=== PATIENT | female | born 1965 | race Caucasian/White ===

== ENCOUNTER 2018-01-19 11:22 | Day surgery (SDC) | payer BC ==
[2018-01-12 09:31] VITALS: BMI 24.8
[~2018-01-19 11:22] MED LIST: DEXAMETHASONE SOD PHOSPHATE 10 MG/ML 1 ML VIAL IV ONE; HYDROmorphone 0.5 MG/0.5 ML SYRINGE IVP PRN; LACTATED RINGERS 1,000 ML IV SCH; MIDAZOLAM 2 MG/2 ML VIAL IV PRN; MORPHINE SULFATE 4 MG/ML SYRINGE IV PRN; ONDANSETRON 4 MG/2 ML VIAL IVP ONE; Pre Op ABX Message 1 EACH MISC MISCELLANE ONE
[2018-01-19] MEDS ORDERED: LIDOCAINE 1% 20 ML VIAL (10MG/ML) FOR IV START INTRADERMA ONE (12:12)
[2018-01-19 12:15] VITALS: TEMP 97.7
[2018-01-19] MEDS ORDERED: ONDANSETRON 4 MG/2 ML VIAL ONE (12:20)
[2018-01-19] MEDS ORDERED: PROPOFOL 10 MG/ML 20 ML VIAL IV ONE (14:39)
[2018-01-19] MEDS ORDERED: ceFAZolin 1,000 MG/50 ML BAG (PMX) IVPB ONE (14:39)
[2018-01-19] MEDS ORDERED: MIDAZOLAM 2 MG/2 ML VIAL ONE (14:39)
[2018-01-19] MEDS ORDERED: LIDOCAINE 1% INJ 10MG/ML (20 ML MDV) ONE (14:39)
[2018-01-19] MEDS ORDERED: fentaNYL (PF) 50 MCG/ML 2 ML AMP ONE (14:39)
[2018-01-19] MEDS ORDERED: diphenhydrAMINE 50 MG/ML 1 ML VIAL ONE (14:39)
[2018-01-19] MEDS ORDERED: BUPIVACAINE (PF) 0.25% 30 ML VIAL SQ ONE (14:40)
[2018-01-19] MEDS ORDERED: LACTATED RINGERS 1,000 ML IV ONE (15:37)
--- NOTE | 2018-01-19 16:25 | P.OP ---
Date of Procedure: 01/19/18 Preoperative Diagnosis: Hallux abductovalgus deformity right foot and plantar fasciitis right foot Postoperative Diagnosis: Same Procedure(s) Performed: 1. Mariano William bunionectomy with pin and wire fixation right foot 2. Endoscopic plantar fasciotomy procedure right foot Anesthesia: MAC Surgeon: Calin Rivas Operative Findings: Unremarkable Description of Procedure: On the date of surgery the patient was taken to the operating room in good condition placed on the operating table in a supine position where an IV was started and adequate IV anesthetic agents were utilized anesthesia was then further supplemented with approximately 20 mL of 0.25% plain Marcaine given in a Reddy block to the first ray complex of the patient's right foot and an infiltrative block to the patient's right heel. The patient's right foot then prepped and draped in the usual aseptic manner and over heavy web roll padding an ankle tourniquet was placed above the malleoli of the patient's right ankle patient's right foot and ankle were then elevated and exsanguinated of blood and after approximately 2 minutes. A time the ankle tourniquet to the patient's right ankle was inflated to approximately 275 mmHg Time attention was directed to the plantar medial side of the patient's right heel where an approximately 1 cm linear incision was made was made in line with the medial band of the plantar fascia and was placed close to the origin of the plantar fascia it was deepened via sharp dissection down through the subcutaneous tissues. A fascial elevator was then passed along the inferior surface of the fascia, creating a channel for the obturator and cannula complex this was then inserted and a lateral exit portal incision was made. The endoscope was introduced and the medial side and L blade from the lateral side and the medial band of the plantar fascia was completely severed upon completion of this fascial probe was used to ensure that all fibers had been severed and when this was seen to be true the surgical site was flushed with copious amounts of sterile saline solution cannula was removed the skin edges were then coaptated and maintained utilizing 4-0 nylon simple interrupted suture. At this point in time attention was directed to the dorsal aspect of the first metatarsal phalangeal joint where an approximately 6-1/2 cm dorsal linear incision was made. The incision was deepened via sharp dissection down through the level of the subcutaneous tissue layers all neurovascular structures encountered were identified isolated and were retracted and any bleeding vessels were clamped electrocauterized dissection was then carried deep down to level OF parosteal structures overlying the first metatarsal phalangeal joint these were incised utilizing an inverted L incision and underscored and retracted from the underlying bone hyperostosis present on the medial side of the first metatarsal head was then resected flush in line with the shaft of the first metatarsal and removed in total site. He oscillating bone saw was then used to create an osteotomy ends first and manner level of the metaphysis this was a 60 osteotomy with the Camp being directed distally upon completion of this through and through medial to lateral osteotomy the capital fragment was displaced laterally proximately 1/2 cm and with a 0.062 K wire. At this point in time attention was directed to the distal aspect of the incision where dissection was carried deep down to level of the middle phalanx Periosteal Structures Were Incised in Line with the Original Skin Incision and Underscored and Retracted from the Underlying Bone Dorsal to Plantar Wedge Osteotomy Was Then Performed and a Manner That the Camp of the Wedge Was Directed Laterally Though Care Was Taken Not to Disrupt the Lateral Cortex the Base of the Wedge Was Directed Medially the Encompass Wedge of Bone Was Removed in Total from the Surgical Site Area to Surgical Drill Holes Were Then Fashioned on Either Side of the Osteotomy at the Dorsal Medial Aspect of the Proximal Interphalangeal Joint They Were Fashioned in Such a Manner That They Met with Then Using Double Strength 28-gauge Monofilament Stainless Steel Wire the Osteotomy Was Fixated and Anatomically Closed in Opposed Position upon Completion of This the Hallux Was Seen to Maintain a More Rectus Position at This Point in Time Attention Was Directed to the Dural Side of the First Metatarsal Phalangeal Joint Where a Lateral Capsulotomy Was Performed and the Abductor Hallucis Tendon Was Severed. He done didn't capsule on the medial side of the joint was then remodeled removed or graft structures then coaptated and maintained utilizing 2-0 Vicryl simple interrupted suture subcutaneous tissue layers were then coaptated and maintained utilizing 3-0 Vicryl simple interrupted suture and the skin was closed utilizing 4-0 nylon simple interrupted suture sites were then covered with Adaptic Kerlix fluffs four-inch conformer and 4 inch Coban to the patient' s right ankle was then deflated and adequate hemostatic return was seen in all digits the patient's right foot The patient tolerated the surgery and anesthesia well was taken recovery room in good postoperative condition
[2018-01-19 16:33] VITALS: RESP 16
[2018-01-19] MEDS ORDERED: HYDROcodone/APAP 5-325MG 1 EACH TAB PO ONE (17:03)
[2018-01-19] MEDS ORDERED: KETOROLAC 30 MG/ML 1 ML VIAL IVP ONE (17:11)
[2018-01-19 17:19] VITALS: PULSE 68
[2018-01-19 17:55] VITALS: BP 129/70
== END 2018-01-19 17:55 | disposition home or self-care (01) ==
LOC: OR 11:22
PROVIDERS: ATTEND Podiatrist Foot & Ankle Surgery
DX: M20.11 Hallux valgus (acquired), right foot (principal); M72.2 Plantar fascial fibromatosis; F41.9 Anxiety disorder, unspecified; J45.909 Unspecified asthma, uncomplicated; K21.9 Gastro-esophageal reflux disease without esophagitis; Z88.1 Allergy status to other antibiotic agents; Z88.0 Allergy status to penicillin; Z79.51 Long term (current) use of inhaled steroids; Z79.899 Other long term (current) drug therapy; Z79.2 Long term (current) use of antibiotics; Z98.51 Tubal ligation status

== ENCOUNTER 2020-11-13 15:14 | Emergency (ER) | payer BC ==
[2020-11-13 15:24] VITALS: BP 160/90; PULSE 108; RESP 16; TEMP 98.1
--- NOTE | 2020-11-13 15:30 | ED ---
Head Injury HPI - General Chief complaint: Head Injury Stated complaint: fall, head/back injury Time Seen by Provider: 11/13/20 15:25 Source: patient Mode of arrival: ambulatory Limitations: no limitations - History of Present Illness Initial comments: 55-year-old female presents to the emergency department with chief complaint of a head injury. Patient reports the incident occurred 3 days prior to arrival. States she was walking and slipped on ice falling on the back and the head. She denies any loss of consciousness but does report feeling dizzy afterward. Patient does report having a hematoma in the occipital region of the head which she has been applying ice on. She does report it has slightly decreased in size but is still present. She does report some pain in the neck, particularly with left and right rotation as well as extension. She denies one-sided weakness or paresthesias. Denies any headaches, gait instability, visual changes.does report taking ibuprofen for pain - Related Data Home Medications Medication Instructions Recorded Confirmed Multivitamins, Thera [Multivitamin 1 tab PO DAILY 11/13/20 11/13/20 (formulary)] Allergies/Adverse reactions: Allergies Allergy/AdvReac Type Severity Reaction Status Date / Time adhesive tape Allergy Rash/Hives Verified 11/13/20 15:58 bacitracin Allergy Rash/Hives Verified 11/13/20 15:58 [From Neosporin ([id number])] neomycin Allergy Rash/Hives Verified 11/13/20 15:58 [From Neosporin ([id number])] Penicillins Allergy Hives Verified 11/13/20 15:58 polymyxin B Allergy Rash/Hives Verified 11/13/20 15:58 [From Neosporin ([id number])] Review of Systems ROS Statement: Those systems with pertinent positive or pertinent negative responses have been documented in the HPI. ROS Other: All systems not noted in ROS Statement are negative. Past Medical History Past Medical History: Asthma Additional Past Medical History / Comment(s): MIGRAINE HEADACHE History of Any Multi-Drug Resistant Organisms: None Reported Past Surgical History: Breast Surgery, Hernia Repair, Hysterectomy, Tubal Ligation Additional Past Surgical History / Comment(s): REPAIR OF DEVIATED SEPTUM, INGUINAL HERNIA RIGHT X2, RIGHT OVARY REMOVED, LEFT BREAST BIOPSY, Past Anesthesia/Blood Transfusion Reactions: Motion Sickness, Postoperative Nausea & Vomiting (PONV) Past Psychological History: Anxiety Smoking Status: Never smoker Past Alcohol Use History: Rare Past Drug Use History: None Reported - Past Family History Mother Family Medical History: Cancer Additional Family Medical History / Comment(s): BREAST CANCER Father Family Medical History: Cancer Additional Family Medical History / Comment(s): LUNG CANCER General Exam Limitations: no limitations General appearance: alert, in no apparent distress Head exam: Present: normocephalic, normal inspection. Absent: atraumatic (small palpable hematoma neck supple region of the head.), other (negative Banerjee sign, or coolness, hemotympanum.) Eye exam: Present: normal appearance, PERRL, EOMI Pupils: Present: normal accommodation ENT exam: Present: normal exam, normal oropharynx, mucous membranes moist, TM's normal bilaterally, normal external ear exam Neck exam: Present: normal inspection, full ROM. Absent: tenderness Respiratory exam: Present: normal lung sounds bilaterally. Absent: respiratory distress, wheezes, rales, rhonchi, stridor Cardiovascular Exam: Present: regular rate, normal rhythm, normal heart sounds Extremities exam: Present: normal inspection, full ROM, normal capillary refill. Absent: tenderness, pedal edema, joint swelling, calf tenderness Back exam: Present: normal inspection, full ROM, tenderness (mild tenderness along the left-sided trapezius). Absent: CVA tenderness (R), CVA tenderness (L), muscle spasm, paraspinal tenderness, vertebral tenderness Neurological exam: Present: alert, oriented X3, CN II-XII intact, normal gait Psychiatric exam: Present: normal affect, normal mood Skin exam: Present: warm, dry, intact, normal color Course Vital Signs 11/13/20 15:20 Temperature 98.1 F Pulse Rate 108 H Respiratory 16 Rate Blood Pressure 160/90 O2 Sat by Pulse 100 Oximetry Medical Decision Making - Medical Decision Making 55-year-old female presenting to the emergency department with a chief complaint of a head injury and fall. On physical examination, patient is resting comfortably. There is a small scalp hematoma in the occipital region of the head. No focal neural deficits. CT of the brain and C-spine shows no acute fractures, dislocations, intracranial hemorrhage or any mass occupying lesions. Suspect a possible concussion. Patient was given extended information regarding concussions and to avoid any physical and mental work. Advised to follow with the ultrasound specialist. Return parameters were thoroughly discussed patient was understanding and agreeable. Case discussed with physician. Disposition Clinical Impression: Hematoma of scalp, Head injury Disposition: HOME SELF-CARE Condition: Stable Instructions (If sedation given, give patient instructions): Concussion (ED) Additional Instructions: alternate between Tylenol and Motrin for pain control. Apply warm compresses to the back. Follow-up with the primary care physician. Please return to the Emergency Department if symptoms worsen or any other concerns. Is patient prescribed a controlled substance at d/c from ED?: No Referrals: Jacob Emery MD [Primary Care Provider] - 1-2 days Time of Disposition: 16:15
--- NOTE | 2020-11-13 16:05 | CT ---
EXAMINATION TYPE: CT brain elio duron DATE OF EXAM: 11/13/2020 COMPARISON: None HISTORY: Fall, hit back of head CT DLP: [address] of the brain was performed. The ventricles, basal cisterns and sulci overlying the cerebral convexities demonstrate mild enlargem ent. There is no evidence for intracranial hemorrhage or sulcal effacement. There is decreased attenuatio n about the periventricular white matter and deep white matter of both cerebral hemispheres, compatib le with chronic small vessel ischemia. No mass effects are seen. If symptoms persist consider MRI. Osseous calvarium is intact. IMPRESSION: 1. Age related atrophic and chronic small vessel ischemic change without acute intracranial process seen at this time. CT Cervical Spine: Unenhanced CT of the cervical spine was performed with bone and soft tissue window settings submitted . Coronal and sagittal reconstruction is obtained. There is normal alignment and prevertebral soft tissues. No evidence for acute cervical fracture . Scattered degenerative disc disease and spondylosis. Biapical scarring. IMPRESSION: 1. No evidence for acute fracture or subluxation of the cervical spine.
== END 2020-11-13 16:23 | disposition home or self-care (01) ==
LOC: EC 15:14
DX: S00.03XA Contusion of scalp, initial encounter (principal); Z91.048 Other nonmedicinal substance allergy status; Z88.1 Allergy status to other antibiotic agents; Z88.0 Allergy status to penicillin; W00.1XXA Fall from stairs and steps due to ice and snow, initial encounter; Y93.01 Activity, walking, marching and hiking
CPT/HCPCS: 70450; 72125; 99283

== ENCOUNTER 2021-02-28 18:11 | Emergency (ER) | payer BC, OTHER ==
[2021-02-28 19:25] VITALS: RESP 18; TEMP 97.8
[2021-02-28] MEDS ORDERED: IBUPROFEN 600 MG TAB PO STA (19:49)
--- NOTE | 2021-02-28 19:55 | ED ---
Fall HPI - General Chief Complaint: Fall Stated Complaint: Ankle injury [facility] Time Seen by Provider: 02/28/21 19:41 Source: patient Mode of arrival: ambulatory - History of Present Illness Initial Comments: 55-year-old white female, well-appearing, presents to the emergency room with complaints of tripping over boots while at work today everting her right ankle. Patient states this happened about 1530 today. Patient states pain is worse. With ambulation now causing her lower leg ache. Patient states 8 out of 10 pain. Has not tried ice, Tylenol, or Motrin. Patient has history of asthma and migraine headaches. Patient denies being smoker, alcohol or drug use. MD Complaint: other -: hour(s) (1529 today) Fall From: other (Ground-level trip ankle eversion injury) When Fall Occurred: 4-[address] [employer] Fall Occurred: work Loss of Consciousness: none Prolonged Down Time?: no Symptoms Prior to Fall: none Location - Extremities: Right: Ankle Severity scale (1-10): 8 Quality: aching Context: tripped/slipped Associated Symptoms: denies - Related Data Home Medications Medication Instructions Recorded Confirmed Multivitamins, Thera [Multivitamin 1 tab PO DAILY 11/13/20 11/13/20 (formulary)] Allergies Allergy/AdvReac Type Severity Reaction Status Date / Time adhesive tape Allergy Rash/Hives Verified 02/28/21 19:25 bacitracin Allergy Rash/Hives Verified 02/28/21 19:25 [From Neosporin ([id number])] neomycin Allergy Rash/Hives Verified 02/28/21 19:25 [From Neosporin ([id number])] Penicillins Allergy Hives Verified 02/28/21 19:25 polymyxin B Allergy Rash/Hives Verified 02/28/21 19:25 [From Neosporin ([id number])] Review of Systems ROS Statement: Those systems with pertinent positive or pertinent negative responses have been documented in the HPI. ROS Other: All systems not noted in ROS Statement are negative. Past Medical History Past Medical History: Asthma Additional Past Medical History / Comment(s): MIGRAINE HEADACHE History of Any Multi-Drug Resistant Organisms: None Reported Past Surgical History: Breast Surgery, Hernia Repair, Hysterectomy, Tubal Ligation Additional Past Surgical History / Comment(s): REPAIR OF DEVIATED SEPTUM, INGUINAL HERNIA RIGHT X2, RIGHT OVARY REMOVED, LEFT BREAST BIOPSY, Past Anesthesia/Blood Transfusion Reactions: Motion Sickness, Postoperative Nausea & Vomiting (PONV) Past Psychological History: Anxiety Smoking Status: Never smoker Past Alcohol Use History: Rare Past Drug Use History: None Reported - Past Family History Mother Family Medical History: Cancer Additional Family Medical History / Comment(s): BREAST CANCER Father Family Medical History: Cancer Additional Family Medical History / Comment(s): LUNG CANCER General Exam Limitations: no limitations General appearance: alert, in no apparent distress Head exam: Present: atraumatic, normocephalic, normal inspection Eye exam: Present: normal appearance, PERRL, EOMI. Absent: scleral icterus, conjunctival injection, periorbital swelling ENT exam: Present: normal exam, normal oropharynx, mucous membranes moist Neck exam: Present: normal inspection, full ROM. Absent: tenderness, meningismus, lymphadenopathy, thyromegaly Respiratory exam: Present: normal lung sounds bilaterally. Absent: respiratory distress, wheezes, rales, rhonchi, stridor Cardiovascular Exam: Present: regular rate, normal rhythm, normal heart sounds. Absent: systolic murmur, diastolic murmur, rubs, gallop, clicks GI/Abdominal exam: Present: soft, normal bowel sounds. Absent: distended, tenderness, guarding, rebound, rigid Right Lower Leg exam: Present: normal inspection, full ROM. Absent: tenderness, swelling, laceration, deformity, erythema Ankle exam: Present: tenderness, swelling. Absent: full ROM, deformity Foot/Toe exam: Present: normal inspection. Absent: ecchymosis, deformity Neurovascular tendon exam: Present: no vascular compromise, abnormal 2-point discrimination. Absent: pulse deficit, abnormal cap refill, pallor, foot drop Back exam: Present: full ROM. Absent: tenderness Neurological exam: Present: alert, oriented X3, CN II-XII intact Psychiatric exam: Present: normal affect, normal mood Skin exam: Present: warm, dry, intact, normal color. Absent: rash Course Vital Signs 02/28/21 19:21 Temperature 97.8 F Pulse Rate 94 Respiratory 18 Rate Blood Pressure 171/93 O2 Sat by Pulse 96 Oximetry Procedures - Orthopedic Splinting/Casting Injury #1 Side: right Lower Extremity Injury Location: ankle Lower Extremity Immobilizer: [employer] Medical Decision Making - Medical Decision Making X-ray of the right ankle shows a small ossific density adjacent to the lateral malleolus which could represent an acute fracture. Patient will be placed in an air splint and follow-up with orthopedics. Case discussed with Dr. Barajas was agreeable to this plan of care Disposition Clinical Impression: Malleolar fracture Disposition: HOME SELF-CARE Condition: Good Instructions (If sedation given, give patient instructions): Ankle Sprain (ED) Additional Instructions: Rest, ice, elevate and wear splint until seen by orthopedics. Tylenol and Motrin as needed for pain and swelling. Follow-up with orthopedics next week. Is patient prescribed a controlled substance at d/c from ED?: No Referrals: Jacob Emery MD [Primary Care Provider] - 1-2 days Chi Barney MD [STAFF PHYSICIAN] - 1-2 days Time of Disposition: 21:04
--- NOTE | 2021-02-28 20:37 | XR ---
Result: History: Pain. Comparison: None available. Technique: 3 views of the right ankle. Findings: There is small 2 mm ossific density adjacent to the lateral malleolar tip. There is well-corticated s mall osteophyte adjacent to the medial malleolus. Ankle mortise is congruent. There is mild soft tiss ue edema about the ankle. There are small to moderate size calcaneal enthesophytes. Impression: Age-indeterminate small ossific density adjacent to the lateral malleolus, for which acute chip fract ure cannot be excluded. Remote postoperative changes of the medial malleolus.
[2021-02-28 21:24] VITALS: BP 138/85; PULSE 78
== END 2021-02-28 21:24 | disposition home or self-care (01) ==
LOC: EC 18:11
DX: S82.891A Other fracture of right lower leg, initial encounter for closed fracture (principal); J45.909 Unspecified asthma, uncomplicated; F41.9 Anxiety disorder, unspecified; Z88.0 Allergy status to penicillin; W01.0XXA Fall on same level from slipping, tripping and stumbling without subsequent striking against object, initial encounter; Y99.0 Civilian activity done for income or pay
CPT/HCPCS: 99284

== ENCOUNTER 2021-09-02 11:01 | Emergency (ER) | payer BC, MEDICAID ==
[2021-09-02 11:33] VITALS: BP 150/90; PULSE 103; RESP 19; TEMP 98.5
[2021-09-02] MEDS ORDERED: KETOROLAC 30 MG/ML 1 ML VIAL IM STA (12:41)
--- NOTE | 2021-09-02 12:51 | ED ---
General Adult HPI - General Chief complaint: Fall Stated complaint: Fall Time Seen by Provider: 09/02/21 12:19 Source: patient, RN notes reviewed Mode of arrival: ambulatory Limitations: no limitations - History of Present Illness Initial comments: 56-year-old female with a past medical history of asthma, migraines presents to the emergency room for a chief complaint of fall. Patient was leaving the [email or web address] store and tripped outside. She fell forward and scraped her face on the ground as well as her right hand. Patient states she also fell on the right anterior chest and is having pain in the anterior ribs shoulder and upper back near her scapula. Patient did not lose consciousness. Patient does not take blood thinners. Patient has no other complaints at this time including shortness of breath, abdominal pain, nausea or vomiting, headache, or visual changes. - Related Data Home Medications Medication Instructions Recorded Confirmed Multivitamins, Thera [Multivitamin 1 tab PO DAILY 11/13/20 11/13/20 (formulary)] Allergies Allergy/AdvReac Type Severity Reaction Status Date / Time adhesive tape Allergy Rash/Hives Verified 09/02/21 11:35 bacitracin Allergy Rash/Hives Verified 09/02/21 11:35 [From Neosporin ([id number])] neomycin Allergy Rash/Hives Verified 09/02/21 11:35 [From Neosporin ([id number])] Penicillins Allergy Hives Verified 09/02/21 11:35 polymyxin B Allergy Rash/Hives Verified 09/02/21 11:35 [From Neosporin ([id number])] Review of Systems ROS Statement: Those systems with pertinent positive or pertinent negative responses have been documented in the HPI. ROS Other: All systems not noted in ROS Statement are negative. Past Medical History Past Medical History: Asthma Additional Past Medical History / Comment(s): MIGRAINE HEADACHE History of Any Multi-Drug Resistant Organisms: None Reported Past Surgical History: Breast Surgery, Hernia Repair, Hysterectomy, Tubal Ligation Additional Past Surgical History / Comment(s): REPAIR OF DEVIATED SEPTUM, INGUINAL HERNIA RIGHT X2, RIGHT OVARY REMOVED, LEFT BREAST BIOPSY, Past Anesthesia/Blood Transfusion Reactions: Motion Sickness, Postoperative Nausea & Vomiting (PONV) Past Psychological History: Anxiety Smoking Status: Never smoker Past Alcohol Use History: Rare Past Drug Use History: None Reported - Past Family History Mother Family Medical History: Cancer Additional Family Medical History / Comment(s): BREAST CANCER Father Family Medical History: Cancer Additional Family Medical History / Comment(s): LUNG CANCER General Exam - General Exam Comments Initial Comments: Right arm: Patient has 90 flexion and abduction of the right shoulder. She does have some generalized right shoulder tenderness as well as scapular tenderness. Radial pulses 2+, capillary refill less than 2 seconds. There is no ecchymosis or contusions noted on the right upper extremity. Limitations: no limitations General appearance: alert, in no apparent distress Head exam: Present: atraumatic Eye exam: Present: normal appearance, PERRL, EOMI. Absent: scleral icterus, conjunctival injection, periorbital swelling ENT exam: Present: normal exam, mucous membranes moist, other (No edema or erythema noted to facial structures.) Neck exam: Present: normal inspection, full ROM. Absent: tenderness Respiratory exam: Present: normal lung sounds bilaterally, chest wall tenderness (pt has right-sided anterior chest wall tenderness, no ecchymosis or external signs of trauma.). Absent: respiratory distress, wheezes Cardiovascular Exam: Present: regular rate, normal rhythm, normal heart sounds GI/Abdominal exam: Present: soft, normal bowel sounds. Absent: distended, tenderness, guarding Course Vital Signs 09/02/21 11:31 Temperature 98.5 F Pulse Rate 103 H Respiratory 19 Rate Blood Pressure 150/90 O2 Sat by Pulse 99 Oximetry Medical Decision Making - Medical Decision Making Vitals are stable. HPI and physical exam as documented. X-ray of the chest shoulder and scapula are negative for any fractures. Patient was given Toradol, which did help with her pain. Patient can be discharged home to follow up with primary care and orthopedics for shoulder pain. We will send her home with Tylenol 3 for breakthrough pain and she will otherwise take anti-inflammatories such as Motrin. Disposition Clinical Impression: Fall, Shoulder pain, right Disposition: HOME SELF-CARE Condition: Good Instructions (If sedation given, give patient instructions): Shoulder Pain (ED), Costochondritis (ED) Additional Instructions: Please take Motrin and Tylenol for pain. If pain is severe take Tylenol 3. Follow up with orthopedics. Return to the emergency room for any worsening symptoms Is patient prescribed a controlled substance at d/c from ED?: No Referrals: Jacob Emery MD [Primary Care Provider] - 1-2 days Thomas Liang DO [Doctor of Osteopathic Medicine] - 1-2 days Time of Disposition: 13:32
--- NOTE | 2021-09-02 12:58 | XR ---
EXAMINATION TYPE: XR shoulder complete RT DATE OF EXAM: 09/02/2021 CLINICAL HISTORY: pain TECHNIQUE: Three views of the right shoulder are obtained. COMPARISON: None FINDINGS: There is no acute fracture/dislocation evident. The acromioclavicular and glenohumeral ramona int spaces appear within normal limits. The visualized ribs are intact and unremarkable. IMPRESSION: 1. There is no acute fracture or dislocation. ICD 10 NO FRACTURE, INITIAL EVALUATION
--- NOTE | 2021-09-02 12:58 | XR ---
EXAMINATION TYPE: XR chest 2V DATE OF EXAM: 09/02/2021 COMPARISON: NONE HISTORY: Shortness of breath TECHNIQUE: Frontal and lateral views of the chest are obtained. FINDINGS: Scattered senescent parenchymal changes noted. Hyperinflation compatible with COPD. No evidence for infiltrate. No evidence for atelectasis. Heart size is stable. Mediastinal structures are stable and grossly unremarkable. No evidence for hilar prominence. Degenerative changes dorsal spine. IMPRESSION: 1. No evidence for acute pulmonary disease.
--- NOTE | 2021-09-02 12:59 | XR ---
EXAMINATION TYPE: XR scapula RT DATE OF EXAM: 09/02/2021 COMPARISON: NONE HISTORY: Pain TECHNIQUE: 2 views of the right scapula are submitted. FINDINGS: There is no evidence for displaced scapular fracture. IMPRESSION: No evidence for fracture.
[2021-09-02] MEDS ORDERED: ACET/COD 300 MG/30 MG STARTER PACK 6 TAB BTL PO STA (13:45)
== END 2021-09-02 13:48 | disposition home or self-care (01) ==
LOC: EC 11:01
DX: M25.511 Pain in right shoulder (principal); R07.81 Pleurodynia; M54.6 Pain in thoracic spine; J45.909 Unspecified asthma, uncomplicated; Z91.09 Other allergy status, other than to drugs and biological substances; Z88.0 Allergy status to penicillin; Z88.8 Allergy status to other drugs, medicaments and biological substances; Z88.1 Allergy status to other antibiotic agents; W01.198A Fall on same level from slipping, tripping and stumbling with subsequent striking against other object, initial encounter; Y92.89 Other specified places as the place of occurrence of the external cause
CPT/HCPCS: 73010; 73030; 71046; 99283; 96372; J1885